=== PATIENT | female | born 1970 | race Caucasian/White ===

== ENCOUNTER → 2017-11-20 | Outpatient (CLI) | payer OTHER ==
--- NOTE | 2017-11-20 20:16 | PN ---
PROGRESS NOTE Yvette is 46. She was initially referred to me for evaluation of chronic hypersomnia and sleepiness. There was a concern about sleep apnea, as the patient reported some loud snoring and occasional arousals in the middle of the night with a choking and gasping sensation. Note that the patient has had previous chronic neck pain and back pain and she has had previous spine surgery; she was taking also Robaxin. The patient was feeling very drowsy and sleepy during the day and she was having increased risk of falling asleep during driving and during daily activity. She is borderline obese and she has been trying to lose weight. She has gained a few pounds over the past few years. No substance abuse. She has been diagnosed having ADHD and she was being treated with Adderall XR 30 mg in the morning and 15 mg short-acting at nighttime. She was given this during her college years for symptoms of ADHD and since then she has been maintained on the same medication. She is also using, as mentioned, Robaxin as a muscle relaxant. She was on Prozac also for symptoms of chronic anxiety and depression. Based on all this, there was a concern about sleep apnea, and at the same time narcolepsy was also considered, knowing that the patient has a sister with a known history of narcolepsy. The patient was taken off Prozac, and after being 2 weeks off Prozac, the patient underwent a PSG and MSLT. These were completed at [facility]. The results were reported separately. The study was done in October of 2017. In summary, the polysomnogram did not show any significant sleep breathing disorder and the patient's AHI was down at 4.7. The patient had increased sleep efficiency at 96% and short REM sleep latency at 20 minutes. There was also some over representation of REM sleep with a REM stage of 34% during the entire sleep time. This was followed by a second-day MSLT, and the patient demonstrated a very short sleep latency of 2.3 minutes and the patient had 2 REM-onset sleep. Upon further questioning, the patient is reporting some symptoms that can potentially indicate cataplexy. She feels muscle weakness in her upper extremities, more so in the legs, and this occurs when she gets upset and sometimes emotional. This got worse after the patient was taken off Prozac in preparation for this PSG and MSLT. She cannot recall a single episode of sleep paralysis. At this point in time she is very somnolent and sleepy and she is complaining of excessive daytime sleepiness despite being on Adderall. She is coming in for further advice regarding her narcolepsy. 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 The patient has no other complaints otherwise for now. She is committed to the treatment and we discussed the possibility of putting her on Xyrem. She was very interested in undergoing the treatment. She does not have any history of alcoholism. No reported confusion or altered mentation. No history of any significant depression symptoms for now. REVIEW OF SYSTEMS: The patient reports no fever, chills or night sweats. No recent weight gain or weight loss. No exercise intolerance. She is excessively fatigued and sleepy. She does not have any active sinus problems. She is a nose-breather. She reports snoring, although there is no reported obstructive sleep apnea. No shortness of breath. No coughing. No diarrhea. No nausea or vomiting. No dyspepsia. No heartburn. No incontinence. No difficulty in urination. No hematuria. No increased frequency. No bruising. No sinus disease or sinus pressure. No mouth ulceration. No other complaints otherwise. PHYSICAL EXAMINATION: BP is 120/65, pulse 80, respirations 16, temperature 98.3, saturation 99% on room air. Height is 5 feet 1/2 inch, weight 193. Neck size is 13-3/4 inches. Palm score is 15. BMI 37.0. GENERAL APPEARANCE: She is calm and comfortable. Not in acute distress. Head is atraumatic, normocephalic. NECK: Supple. There is no JVD. No goiter or neck masses. LUNGS: Clear to auscultation. HEART: Heart sounds are regular rate and rhythm. Normal S1, S2. No S3, S4. No murmurs. ABDOMEN: Soft, nontender. No organomegaly. EXTREMITIES: No edema. No cyanosis or clubbing. NEUROLOGIC: Alert and oriented x3. No focal neurological deficit. PSYCHIATRIC: History of depression. IMPRESSION: 1. 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 No hypnagogic hallucinations. She has had a few episodes of sleep paralysis in the past. Her symptoms of cataplexy got worse as the patient was taken off Prozac in preparation for this PSG and MSLT. 2. Excessive daytime sleepiness. Palm score of 15. 3. Questionable history of attention deficit hyperactivity disorder. Currently on Adderall 30 mg XR in the morning and 15 mg at noontime. 4. Depression, on Prozac 20 mg p.o. daily. 5. Degenerative arthritis and chronic neck pain, maintained on a combination of and Robaxin. 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 Treatment of choice will include Xyrem. The patient is already on Adderall XL 30 mg in the morning and 15 mg at noontime and she is not seeing any major benefit, as the patient continues to be symptomatic. No significant sleep attacks, although the patient is very sleepy at this point in time, and she will be a good candidate for treatment with Xyrem. The medication was discussed with the patient. The side effect profile was discussed. I told the patient that she cannot drink alcohol or take any other medication that can slow her breathing or mental activity at the time when she is on Xyrem. I also discussed serious side effects, including trouble breathing while asleep, confusion, unusual disturbing thoughts, depression and passing out, even at the recommended doses. She was aware of these major side effects and she will report to me back if any of these symptoms develop. Abuse of Xyrem can lead also to dependence, and this has been explained to the patient. The patient was asked not to drive a car or use heavy machinery or do any activity that requires a high level of alertness for the first 6 hours after taking the Xyrem. My plan is to start the Xyrem at the lowest dose, which will be 2.25 grams twice a day by 3 hours, first dose being at a time when going to sleep and the second dose 3 hours after that. The dose will be gradually titrated by increasing it by 1.5 grams every week to reach a target dose of 9 grams every night. The patient will be seen 2 to 3 weeks after initiation of this treatment, which will be in the midst of her titration, to assess for clinical response and side effect profile. During this time, the Adderall will be continued and the Prozac will be continued at the same doses. The patient will be educated on how to prepare her doses and how to undergo the treatment. This will be further taken care of by a specialty pharmacy, who will deliver this medication to her. The prescription was filled and the patient will see me back in followup for further advice. Encouraged sleep hygiene measures. The patient will be asked to sleep at least 6-7 hours per night and take power naps if needed. Will continue to follow and make further recommendations based on her progress. MMODL / IJN: [id number] / DAVID
== END | disposition home or self-care (01) ==
LOC: SLEEP 13:51
PROVIDERS: ATTEND Internal Medicine Critical Care Medicine
DX: Z53.9 Procedure and treatment not carried out, unspecified reason (principal)

== ENCOUNTER → 2022-05-30 | Outpatient (CLI) | payer OTHER ==
--- NOTE | 2022-05-30 16:19 | CT ---
EXAMINATION TYPE: CT chest w con CT DLP: 221 mGycm, Automated exposure control for dose reduction was used. DATE OF EXAM: 05/30/2022 3:55 PM COMPARISON: None CLINICAL INDICATION:Female, 51 years old with history of D86.3 SARCOIDOSIS OF SKIN; TECHNIQUE: Multiple axial images were obtained through the chest. Sagittal and coronal reformats were created for review. Contrast used:100 mL of Isovue 300 with IV Contrast Oral contrast used: none. FINDINGS: LUNGS/ PLEURA: No evidence focal consolidation, pneumothorax or pleural effusion. No suspicious pulmo nary nodules. AIRWAY: Patent and unremarkable. HEART: Size within normal limits. MEDIASTINUM: No gross evidence of adenopathy. VASCULATURE: No aortic aneurysm. No evidence for pulmonary embolus centrally. MUSCULOSKELETAL: No acute osseous abnormalities SOFT TISSUES/LYMPH NODES: Unremarkable. LOWER NECK: No significant findings. UPPER ABDOMEN: No significant findings. IMPRESSION: No evidence for acute process. No lymphadenopathy or specific lung finding to correlate with sarcoido sis.
== END | disposition home or self-care (01) ==
LOC: RADCTMAIN 15:21
PROVIDERS: ATTEND Internal Medicine Critical Care Medicine
DX: D86.3 Sarcoidosis of skin (principal)
CPT/HCPCS: 71260; Q9967